=== PATIENT | female | born 1995 | race Caucasian/White ===

== ENCOUNTER 2017-10-24 14:05 | Emergency (ER) | payer SELFPAY ==
--- NOTE | 2017-10-24 17:42 | ED.PDOC ---
History of Present Illness - General Chief Complaint: Respiratory Problem Stated Complaint: L RIB PAIN Time Seen by Provider: 10/24/17 17:33 Source: patient Exam Limitations: no limitations - History of Present Illness Initial Comments: L RIB PAIN. STARTED TODAY. NO SOB. NO DYSURIA. NO NVD. NO RECENT GASTROENTERITIS. Timing/Duration: 1-3 hours Severity: mild Improving Factors: nothing Worsening Factors: nothing Associated Symptoms: denies symptoms Allergies/Adverse Reactions: Allergies NO KNOWN ALLERGY Allergy (Verified 10/24/17 19:09) Review of Systems - Review of Systems Constitutional: States: no symptoms reported EENTM: States: no symptoms reported Respiratory: States: no symptoms reported. Denies: cough, short of breath Cardiology: States: no symptoms reported Gastrointestinal/Abdominal: States: no symptoms reported. Denies: abdominal pain, constipation, diarrhea, nausea, vomiting Genitourinary: Denies: discharge, dysuria, frequency, hematuria Musculoskeletal: States: no symptoms reported. Denies: back pain Skin: States: no symptoms reported Neurological: States: no symptoms reported Endocrine: States: no symptoms reported Hematologic/Lymphatic: States: no symptoms reported All other Systems: Reviewed and Negative Family Medical History - Family History Mother Family History: No Known Living Status: Still Living Physical Exam - Physical Exam General Appearance: Alert, Comfortable, No apparent distress Ears, Nose, Throat: hearing grossly normal, normal ENT inspection Neck: full range of motion Respiratory: chest non-tender, lungs clear, normal breath sounds, no respiratory distress, no accessory muscle use Cardiovascular/Chest: normal peripheral pulses, regular rate, rhythm, no edema, no gallop, no JVD, no murmur Gastrointestinal/Abdominal: normal bowel sounds, soft, no organomegaly, no pulsatile mass, other - LUQ ONLY MILDLY TENDER TO DEEP PALPATION. L FLANK NTTP. Back Exam: normal inspection, no CVA tenderness, no vertebral tenderness Extremity: normal range of motion, normal inspection Neurologic: no motor/sensory deficits, alert, oriented x 3 Skin Exam: normal color, warm/dry Lymphatic: no adenopathy Progress - Results/Orders Results/Orders: HCG POS. CBC AND CMP NEG. UA NOT COLLECTED; PT DID NOT VOID. Departure - Departure Clinical Impression: , Abdominal pain, Nausea Disposition: Discharge to Home or Self Care Condition: Good Departure Forms: ED Discharge - Pt. Copy, Patient Portal Self Enrollment Instructions: Managing Symptoms of Diet: resume usual diet Activity: increase activity as tolerated Additional Instructions: Please establish care with an OB regarding your .
[2017-10-24 18:46] VITALS: TEMP 98.7; O2SAT 97
[2017-10-24 19:32] VITALS: BP 124/82
== END 2017-10-24 19:32 | disposition home or self-care (01) ==
LOC: ER 14:05
DX: O21.0 Mild hyperemesis gravidarum (principal); Z3A.00 Weeks of gestation of pregnancy not specified; R10.9 Unspecified abdominal pain

== ENCOUNTER 2017-11-11 22:35 | Emergency (ER) | payer MEDICAID ==
--- NOTE | 2017-11-11 23:08 | ED.PDOC ---
History of Present Illness - General Chief Complaint: Problem Stated Complaint: left lower back pain Time Seen by Provider: 11/11/17 23:03 Source: patient Exam Limitations: no limitations - History of Present Illness Initial Comments: Katelyn Machado 22 y/o female stated that she had left sided low back ache today no history of back injury but she was here 2 weeks ago for rib pain and also had serum hcg which was positive.No vaginal bleeding no hematuria,no fever. Timing/Duration: 24 hours Severity: mild Improving Factors: nothing Worsening Factors: nothing Associated Symptoms: denies symptoms Allergies/Adverse Reactions: Allergies NO KNOWN ALLERGY Allergy (Verified 10/24/17 19:09) Review of Systems - Review of Systems Constitutional: States: no symptoms reported EENTM: States: no symptoms reported Respiratory: States: no symptoms reported Cardiology: States: no symptoms reported Gastrointestinal/Abdominal: States: no symptoms reported Genitourinary: States: no symptoms reported Musculoskeletal: States: see HPI Skin: States: no symptoms reported Past Medical History (General) - Patient Medical History Hx Stroke: No Hx Congestive Heart Failure: No Hx Diabetes: No Surgical History: no surgical history - Vaccination History Hx Tetanus, Diphtheria Vaccination: Yes Hx Influenza Vaccination: No Hx Pneumococcal Vaccination: No Immunizations Up to Date: Yes - Social History Hx Tobacco Use: Yes Feels Threatened In Home Enviroment: No Feels Threatened In a Relationship: No Hx Physical Abuse: No Hx Emotional Abuse: No Hx Suspected Abuse: No - Female History Patient is a Female of Child Bearing Age (10 -59 yrs old): Yes Hx Last Menstrual Period: 10/12/17 Patient : Yes Family Medical History - Family History Mother Family History: No Known Living Status: Still Living Physical Exam - Physical Exam General Appearance: Alert, Comfortable, No apparent distress Eye Exam: bilateral normal Ears, Nose, Throat: hearing grossly normal, normal ENT inspection Neck: non-tender, supple Respiratory: chest non-tender, lungs clear Cardiovascular/Chest: normal peripheral pulses, regular rate, rhythm Peripheral Pulses: radial,right: 2+, radial,left: 2+ Gastrointestinal/Abdominal: normal bowel sounds, non tender, soft, no organomegaly Back Exam: no CVA tenderness, no vertebral tenderness Extremity: non-tender, no pedal edema, no calf tenderness Neurologic: alert, oriented x 3 Skin Exam: normal color, warm/dry Progress - Progress Progress: 11/11/17 23:10 Vital Signs - 8 hr 11/11/17 22:52 Temperature 98.9 F Pulse Rate [ 99 H Left Brachial] Respiratory 16 Rate Blood Pressure 145/91 [Left Arm] O2 Sat by Pulse 96 Oximetry - Results/Orders Results/Orders: Laboratory Results - last 24 hr 11/11/17 22:41 Urine Color Yellow Urine Appearance Sl cloudy Urine pH 5.5 Ur Specific [place] 1.025 Urine Protein Negative Urine Glucose (UA) Negative Urine Ketones Negative Urine Blood Negative Urine Nitrite Negative Urine Bilirubin Negative Urine Urobilinogen 0.2 Ur Leukocyte Esterase Trace H Urine RBC 0 Urine WBC 1-3 Ur Epithelial Cells 3-5 Amorphous Sediment Trace Urine Bacteria Rare Departure - Departure Clinical Impression: Low back ache Qualifiers: Chronicity: unspecified Back pain laterality: left Sciatica presence: without sciatica Qualified Code(s): M54.5 - Low back pain Qualifiers: Weeks of gestation: less than 8 weeks Qualified Code(s): Z3A.01 - Less than 8 weeks gestation of Time of Disposition: 23:13 Disposition: Discharge to Home or Self Care Condition: Good Departure Forms: ED Discharge - Pt. Copy, Patient Portal Self Enrollment Additional Instructions: Keep appointment with [facility];Return to ER as needed;May take Tylenol 500 mg by mouth every 6 hours as needed for pain;may use icepack 20 minutes 3 x a day as needed for pain during waking hours only for 5 days
[2017-11-11 23:39] VITALS: BP 138/92; TEMP 98; O2SAT 97
== END 2017-11-11 23:39 | disposition home or self-care (01) ==
LOC: ER 22:35
DX: O99.89 Other specified diseases and conditions complicating pregnancy, childbirth and the puerperium (principal); M54.5 Low back pain; Z3A.01 Less than 8 weeks gestation of pregnancy

== ENCOUNTER 2017-12-03 18:03 | Emergency (ER) | payer MEDICAID ==
--- NOTE | 2017-12-03 19:20 | ED.PDOC ---
History of Present Illness - General Chief Complaint: ENT Problem Stated Complaint: Sore throat, runny nose, cough Time Seen by Provider: 12/03/17 19:10 Source: patient - History of Present Illness Initial Comments: Katelyn Machado 22 y/o female came to ER with nasal congestion,sneezing ,coughing eyes watery for the last 5 days.No fever,chills ,wheezing or SOB Timing/Duration: gradual Severity: moderate EENT Location: eye (R), eye (L), nose Prearrival Treatment: no prearrival treatment Presenting Symptoms: see hpi Improving Factors: nothing Worsening Factors: other - pollen Allergies/Adverse Reactions: Allergies NO KNOWN ALLERGY Allergy (Verified 12/03/17 18:46) Home Medications: Ambulatory Orders NK [NK] 12/03/17 Review of Systems - Review of Systems Constitutional: States: no symptoms reported EENTM: States: see HPI Respiratory: States: no symptoms reported Cardiology: States: no symptoms reported All other Systems: Reviewed and Negative, No Change from Baseline Past Medical History (General) - Patient Medical History Hx Stroke: No Hx Congestive Heart Failure: No Hx Diabetes: No Surgical History: tonsillectomy, other - Vaccination History Hx Tetanus, Diphtheria Vaccination: Yes Hx Influenza Vaccination: No Hx Pneumococcal Vaccination: No - Social History Hx Tobacco Use: Yes Hx Physical Abuse: No Hx Emotional Abuse: No Hx Suspected Abuse: No - Female History Patient is a Female of Child Bearing Age (10 -59 yrs old): Yes Hx Last Menstrual Period: 10/12/17 Patient : Yes Expected Date of Delivery:: 06/19/18 Family Medical History - Family History Mother Family History: No Known Living Status: Still Living Physical Exam - Physical Exam General Appearance: Alert, Comfortable, No apparent distress Eye Exam: bilateral normal Ear Exam: bilateral ear: auricle normal, canal normal, TM normal Nasal Exam: other - bilateral nasal congestion Throat Exam: normal mouth inspection, pharynx normal Neck: non-tender, full range of motion, supple, trachea midline Cardiovascular/Respiratory: regular rate, rhythm, no M/R/G, normal breath sounds Abdominal Exam: non-tender, no organomegaly Neurologic: alert, oriented x 3 Skin Exam: normal color, warm/dry Progress - Progress Progress: 12/03/17 19:23 Vital Signs - 8 hr 12/03/17 18:41 Temperature 98.1 F Pulse Rate [ 86 Left Radial] Respiratory 18 Rate Blood Pressure 135/88 [Left Arm] O2 Sat by Pulse 95 Oximetry Departure - Departure Clinical Impression: Hay fever Time of Disposition: 19:24 Disposition: Discharge to Home or Self Care Condition: Good Departure Forms: ED Discharge - Pt. Copy, Patient Portal Self Enrollment Instructions: DI for Allergic Rhinitis, Allergic Rhinitis, Allergies, Respiratory (Alternative Therapy) Referrals: Josafat Dillon MD [Primary Care Provider] - 1-2 Weeks Home Medications: Ambulatory Orders NK [NK] 12/03/17 Additional Instructions: May use over the counter medications:Claritin one tablet daily;Afrin nose spray 2 sprays each nose AM/pm 3 days on 3 days off for nasal congestion
[2017-12-03 19:32] VITALS: BP 129/82; TEMP 98.2; O2SAT 98
== END 2017-12-03 19:32 | disposition home or self-care (01) ==
LOC: ER 18:03
DX: J30.1 Allergic rhinitis due to pollen (principal); Z87.891 Personal history of nicotine dependence

== ENCOUNTER 2017-12-17 21:32 | Emergency (ER) | payer MEDICAID ==
[2017-12-17] MEDS ORDERED: cefTRIAXone SODIUM 1 GM VIAL IM ONE (21:58)
[2017-12-17] MEDS ORDERED: IPRATROPIUM/ALBUTEROL 3 ML VIAL NEB ONE (21:58)
--- NOTE | 2017-12-17 22:01 | ED.PDOC ---
History of Present Illness - General Chief Complaint: Respiratory Problem Stated Complaint: head congestion Time Seen by Provider: 12/17/17 21:58 Source: patient Exam Limitations: no limitations - History of Present Illness Comments: patient comes in today with 3 week history of nasal congestion with sinus pressure and yellow discharge. The patient states she was told that it was allergies but it continues to worsen. No fever or chills but several day history now of worsening shortness of breath. Today she is coughing with purulent sputum and having some wheezing. Patient does not have a history of asthma which is not currently taking any medication. Patient is 13 weeks . Patient denies any vaginal bleeding abdominal discomfort or pain. Patient has no past medical history but she does smoke she shares approximately 5 cigarettes a day with her housemates. Timing/Duration: week - 3 Cough Quality/Degree: productive cough Possible Cause: no prior episodes Improving Factors: nothing Worsening Factors: movement Associated Symptoms: cough, nasal congestion, nasal drainage, shortness of breath, wheezing Respiratory Risk Factors: no cause identified Allergies/Adverse Reactions: Allergies NO KNOWN ALLERGY Allergy (Verified 12/03/17 18:46) Home Medications: Ambulatory Orders Albuterol Inhaler [Ventolin Hfa Inhaler] 1 puff INH TID 10 Days #1 inh 12/17/17 Azithromycin [Zithromax Z-David] 1 ea PO DAILY #1 pack 12/17/17 Review of Systems - Review of Systems Constitutional: States: no symptoms reported. Denies: chills, fever EENTM: States: nose pain, nose congestion. Denies: ear pain, throat pain Respiratory: States: cough, short of breath, wheezing Gastrointestinal/Abdominal: States: no symptoms reported. Denies: abdominal pain, diarrhea, nausea, vomiting Genitourinary: Denies: no symptoms reported Neurological: States: no symptoms reported Past Medical History (General) - Patient Medical History Hx Stroke: No Hx Congestive Heart Failure: No Hx Diabetes: No Surgical History: tonsillectomy - Vaccination History Hx Tetanus, Diphtheria Vaccination: Yes Hx Influenza Vaccination: No Hx Pneumococcal Vaccination: No Immunizations Up to Date: No - Social History Hx Tobacco Use: Yes Hx Physical Abuse: No Hx Emotional Abuse: No Hx Suspected Abuse: No - Female History Patient is a Female of Child Bearing Age (10 -59 yrs old): Yes Hx Last Menstrual Period: 10/12/17 Patient : Yes - 13 weeks Expected Date of Delivery:: 06/19/18 Family Medical History - Family History Mother Family History: No Known Living Status: Still Living Physical Exam - Physical Exam General Appearance: Alert, No apparent distress Eye Exam: bilateral normal ENT Exam: TMs normal, nasal congestion, other - no sinus tenderness, clear discharge and congestion OP with moist mucous membranes and no erythema Neck: full range of motion, supple, normal inspection Respiratory: no respiratory distress - wheezes in all lung allen with no crackles , wheezing Cardiovascular/Chest: normal peripheral pulses, regular rate, rhythm, no edema, no gallop, no JVD, no murmur Gastrointestinal/Abdominal: normal bowel sounds, non tender, soft Neurologic: alert, oriented x 3 Progress - Progress Progress: 12/17/17 22:46 Laboratory Results WBC 12.7 K/mm3 (4.8-10.8) H 12/17/17 22:24 RBC 4.40 M/mm3 (4.20-5.40) 12/17/17 22:24 Hgb 12.5 gm/dL (12.0-16.0) 12/17/17 22:24 Hct 37.1 % (36.0-47.0) 12/17/17 22:24 MCV 84.3 fl (81.0-99.0) 12/17/17 22:24 MCH 28.4 pg (27.0-31.0) 12/17/17 22:24 MCHC 33.7 g/dL (33.0-37.0) 12/17/17 22:24 RDW 16.8 % (11.5-14.5) H 12/17/17 22:24 Plt Count 364 K/mm3 (130-400) 12/17/17 22:24 MPV 6.9 fl (7.40-10.4) L 12/17/17 22:24 Absolute Neuts (auto) 9.00 K/uL (1.8-6.8) H 12/17/17 22:24 Absolute Lymphs (auto) 2.40 K/uL (1.0-3.4) 12/17/17 22:24 Absolute Monos (auto) 0.70 K/uL (0.2-0.8) 12/17/17 22:24 Absolute Eos (auto) 0.60 K/uL (0.0-0.4) H 12/17/17 22:24 Absolute Basos (auto) 0.00 K/uL (0.0-0.1) 12/17/17 22:24 Neutrophils % 70.5 % (42.0-78.0) 12/17/17 22:24 Lymphocytes % 19.1 % (20.0-50.0) L 12/17/17 22:24 Monocytes % 5.8 % (2.0-9.0) 12/17/17 22:24 Eosinophils % 4.5 % (1.0-5.0) 12/17/17 22:24 Basophils % 0.1 % (0.0-2.0) 12/17/17 22:24 Patient feels better after breathing treatment and lungs are now clear. Discussed stopping smoking and second hand smoke. Patient to get Zpack tomorrow and albuterol inhaler. Patient to follow up with PCP in 3-4 days to recheck lungs. Departure - Departure Clinical Impression: Bronchitis, Tobacco abuse Disposition: Discharge to Home or Self Care Condition: Good Departure Forms: ED Discharge - Pt. Copy, Patient Portal Self Enrollment Diet: resume usual diet Referrals: Josafat Dillon MD [Primary Care Provider] - 1-2 Weeks Home Medications: Ambulatory Orders Albuterol Inhaler [Ventolin Hfa Inhaler] 1 puff INH TID 10 Days #1 inh 12/17/17 Azithromycin [Zithromax Z-David] 1 ea PO DAILY #1 pack 12/17/17 Additional Instructions: patient is to follow up with PCP in 3-4 days to recheck lungs. Return to emergency room for shortness of breath, wheezing, worsening of symptoms. Z-David to be started tomorrow as well as breathing treatments with albuterol. Stop all smoking and secondhand smoke
[2017-12-17 23:01] VITALS: BP 122/72; TEMP 97.8; O2SAT 96
== END 2017-12-17 23:00 | disposition home or self-care (01) ==
LOC: ER 21:32
DX: O99.511 Diseases of the respiratory system complicating pregnancy, first trimester (principal); J40 Bronchitis, not specified as acute or chronic; O99.331 Smoking (tobacco) complicating pregnancy, first trimester; F17.210 Nicotine dependence, cigarettes, uncomplicated; Z3A.13 13 weeks gestation of pregnancy
CPT/HCPCS: 36415; 85025; 94640; 99406; J0696; J7620

== ENCOUNTER 2018-01-22 10:33 | Emergency (ER) | payer MEDICAID ==
[2018-01-22 11:11] VITALS: TEMP 98.2
--- NOTE | 2018-01-22 11:17 | ED.PDOC ---
History of Present Illness - General Chief Complaint: RAND BUTTER Problem Stated Complaint: vaginal bleeding; right abdominal pain Time Seen by Provider: 01/22/18 10:37 Source: patient Exam Limitations: no limitations - History of Present Illness Initial Comments: PT REPORTS LIGHT VAGINAL BLEEDING AND CRAMPING SINCE THIS AM AFTER ARGUING WITH HER SIGNIFICANT OTHER THE PREVIOUS NIGHT. PT DENIES ANY PHYSICAL ALTERCATION OR TRAUMA. PT IS CURRENTLY 5 MOS WITH HER SECOND CHILD. Timing/Duration: this morning Quality: mild, intermittent Radiation: none Activites at Onset: emotional stress Prior abdominal problems: none Sexual intercourse history: single partner Improving Factors: nothing Worsening Factors: nothing Associated Symptoms: denies symptoms Allergies/Adverse Reactions: Allergies NO KNOWN ALLERGY Allergy (Verified 12/03/17 18:46) Home Medications: Ambulatory Orders Albuterol Inhaler [Ventolin Hfa Inhaler] 1 puff INH TID 10 Days #1 inh 12/17/17 Azithromycin [Zithromax Z-David] 1 ea PO DAILY #1 pack 12/17/17 Review of Systems - Review of Systems Constitutional: Denies: chills, fever Respiratory: Denies: cough, short of breath Cardiology: Denies: chest pain, palpitations Gastrointestinal/Abdominal: States: abdominal pain. Denies: nausea, vomiting Genitourinary: Denies: dysuria, frequency Musculoskeletal: Denies: back pain, joint swelling Skin: Denies: dryness, lesions Neurological: Denies: headache, numbness Endocrine: States: no symptoms reported Past Medical History (General) - Patient Medical History Hx Stroke: No Hx Congestive Heart Failure: No Hx Diabetes: No Surgical History: tonsillectomy, other - Vaccination History Hx Tetanus, Diphtheria Vaccination: Yes Hx Influenza Vaccination: No Hx Pneumococcal Vaccination: No - Social History Hx Tobacco Use: Yes Hx Physical Abuse: No Hx Emotional Abuse: No Hx Suspected Abuse: No - Female History Hx Last Menstrual Period: 10/12/17 Patient : Yes - 13 weeks Expected Date of Delivery:: 06/19/18 Family Medical History - Family History Mother Family History: No Known Living Status: Still Living Physical Exam - Physical Exam General Appearance: Alert, Anxious, Well Developed, Well Hydrated Eyes, Ears, Nose, Throat Exam: normal ENT inspection Cardiovascular/Respiratory: no M/R/G, normal breath sounds, no respiratory distress Gastrointestinal/Abdominal: non tender, soft Neurologic: alert, normal mood/affect, oriented x 3 Skin Exam: normal color, warm/dry Progress - Progress Progress: 01/22/18 11:19 BEDSIDE TRANSABDOMINAL U/S PERFORMED BY ME FOR INDICATION OF VAGINAL BLEEDING IN SECOND TRIMESTER WITH INABILITY TO CONFIRM HEART TONES. CURVILINEAR PROBE USED WITH SHORT AND LONG AXIS VIEWS OBTAINED. FINDINGS INCLUDE IUP WITH GESTATIONAL AGE OF APPROXIMATELY 5 MOS WITH CARDIAC ACTIVITY OF 152BPM. - Results/Orders Results/Orders: Laboratory Tests 01/22/18 11:10 Urine Color Yellow Urine Appearance Clear Urine pH 7.0 Ur Specific [place] 1.020 Urine Protein Negative Urine Glucose (UA) Negative Urine Ketones Negative Urine Blood Moderate H Urine Nitrite Negative Urine Bilirubin Negative Urine Urobilinogen 0.2 Ur Leukocyte Esterase Negative Urine RBC 0-1 Urine WBC 0 Ur Epithelial Cells 3-5 Urine Bacteria 0 Departure - Departure Clinical Impression: Threatened , Intrauterine , Second trimester bleeding Time of Disposition: 11:36 Disposition: Discharge to Home or Self Care Condition: Fair Departure Forms: ED Discharge - Pt. Copy, Patient Portal Self Enrollment Instructions: DI for Threatened Referrals: Josafat Dillon MD [Primary Care Provider] - 1-2 Days Home Medications: Ambulatory Orders Albuterol Inhaler [Ventolin Hfa Inhaler] 1 puff INH TID 10 Days #1 inh 12/17/17 Azithromycin [Zithromax Z-David] 1 ea PO DAILY #1 pack 12/17/17
[2018-01-22 11:43] VITALS: BP 118/74; O2SAT 96
== END 2018-01-22 11:40 | disposition home or self-care (01) ==
LOC: ER 10:33
DX: O20.0 Threatened abortion (principal); Z3A.13 13 weeks gestation of pregnancy; Z87.891 Personal history of nicotine dependence